=== PATIENT | male | born 1975 | race Caucasian/White ===

== ENCOUNTER → 2021-09-29 | Outpatient (CLI) | payer BC ==
--- NOTE | 2021-09-29 15:57 | KCIC ---
XR LUMBAR SPINE 2-3V DATE: 09/29/2021 2:08 PM INDICATION: SCIATICA LEFT SIDE, CHRONIC PAIN, NO INJURY COMPARISON: None. FINDINGS: Five non-rib bearing lumbar-type vertebral bodies are present. Bones/Alignment: No evidence of acute compression fracture. There is no listhesis. Joints: Mild degenerative disc disease at L4-5 and L5-S1 Miscellaneous: None. IMPRESSION: Mild lumbar spondylosis. If radiculopathy persists, consider MRI. Electronically signed by: Michael Bhatti MD (09/29/2021 3:55 PM) [id number]
== END ==
LOC: KCIC 14:05
PROVIDERS: ATTEND Family Medicine
DX: M47.816 Spondylosis without myelopathy or radiculopathy, lumbar region (principal); M51.37 Other intervertebral disc degeneration, lumbosacral region; M54.32 Sciatica, left side
CPT/HCPCS: 72100